=== PATIENT | male | born 1970 | race Hispanic/Latino ===

== ENCOUNTER 2020-02-11 11:11 | Emergency (ER) | payer OTHER ==
[2020-02-11] MEDS ORDERED: OCTYL 2-CYANOACRYLATE 1 EACH TP ONE (11:35)
[2020-02-11] MEDS ORDERED: ACETAMINOPHEN EXTRA STRENGTH 500 MG TABLET ONE (11:35)
== END 2020-02-11 12:19 | disposition home or self-care (01) ==
LOC: EDH 11:11
DX: S01.112A Laceration without foreign body of left eyelid and periocular area, initial encounter (principal); W26.8XXA Contact with other sharp object(s), not elsewhere classified, initial encounter; Y93.H9 Activity, other involving exterior property and land maintenance, building and construction; Y92.69 Other specified industrial and construction area as the place of occurrence of the external cause; Y99.8 Other external cause status
CPT/HCPCS: 12011; 99282